=== PATIENT | male | born 1955 | race American Indian/Alaskan Native ===

== ENCOUNTER 2019-03-17 14:34 | Emergency (ER) | payer OTHER ==
--- NOTE | 2019-03-17 14:51 | Emergency Department Report ---
Blank Doc - Documentation Documentation: This is a 63-year-old male that presents with lower back pain and lower abdomi nal pain. Stated has dark color urine with foul odor. This initial assessment/diagnostic orders/clinical plan/treatment(s) is/are subject to change based on patient's health status, clinical progression and re- assessment by fellow clinical providers in the ED. Further treatment and workup at subsequent clinical providers discretion. Patient/guardians urged not to elope from the ED as their condition may be serious if not clinically assessed and managed. Initial orders include: 1- Patient sent to [facility] for further evaluation and treatment 2- labs 3- UA
[2019-03-17 16:08] LABS: Bilirubin,Urine NEG (Negative); Blood,Urine NEG (Negative); Color,Urine Yellow (Yellow); Mucus,Urine 1+ /HPF; Urobilinogen,Urine < 2.0 mg/dL (<2.0)
[2019-03-17 16:09] LABS: RBC,Urine < 1.0 /HPF (0.0-6.0)
[2019-03-17 17:05] LABS: Basophils % (Auto) 0.6 % (0.0-1.8); Eosinophils % (Auto) 1.1 % (0.0-4.3); Hematocrit 39.1 % (35.5-45.6); Hemoglobin 13.2 gm/dl (11.8-15.2); Lymphocytes # (Auto) 1.7 K/mm3 (1.2-5.4); Mean Corpuscular HGB Conc 34 % (32-34); Mean Corpuscular Volume 91 fl (84-94); Monocytes # (Auto) 0.5 K/mm3 (0.0-0.8); Monocytes % (Auto) 11.9 % (0.0-7.3); Platelet Count 160 K/mm3 (140-440); Red Blood Count 4.28 M/mm3 (3.65-5.03)
[2019-03-17 17:25] LABS: Alanine Aminotransferase 15 units/L (7-56); Albumin 4.4 g/dL (3.9-5); BUN/Creatinine Ratio 15; Blood Urea Nitrogen 15 mg/dL (9-20); Calcium 9.4 mg/dL (8.4-10.2); Hemolysis Index 4
[2019-03-17] MEDS ORDERED: TORADOL IM ONE (18:22)
--- NOTE | 2019-03-17 18:24 | Emergency Department Report ---
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 He is stating that his urine just doesn't feel right" right. He also complains of bilateral back pain. He denies injury fall or other trauma. He denies any blood in his urine. He denies discharge. He denies fever and chills. He states that he has had this before and they gave him Motrin and it did nothing for him. He is requesting pain medicines. ED Review of Systems ROS: Stated complaint: BACK PAIN/LOW ABD PAIN Other details as noted in HPI Comment: All other systems reviewed and negative ED Past Medical Hx - Past Medical History Previous Medical History?: No - Surgical History Past Surgical History?: No - Family History Family history: no significant - Social History Smoking Status: Never Smoker - Medications Home Medications: Home Medications Medication Instructions Recorded Confirmed Last Taken Type Acetaminophen/Codeine [Tylenol 1 tab PO Q6H PRN #10 tab 03/17/19 Unknown Rx /Codeine # 3 tab] Dysuria Exam - Exam General: Vital signs noted. No distress. Alert and acting appropriately. Exam: Yes Moist Mucous Membranes, No CVA Tenderness, No Abdominal Tenderness, No Rigidity or Guarding Labs: Lab Results 03/17/19 03/17/19 03/17/19 Range/Units 15:11 15:11 Unknown WBC 4.4 L (4.5-11.0) K/mm3 RBC 4.28 (3.65-5.03) M/mm3 Hgb 13.2 (11.8-15.2) gm/dl Hct 39.1 (35.5-45.6) % MCV 91 (84-94) fl MCH 31 (28-32) pg MCHC 34 (32-34) % RDW 15.0 (13.2-15.2) % Plt Count 160 (140-440) K/mm3 Lymph % (Auto) 38.0 H (13.4-35.0) % [place] % (Auto) 11.9 H (0.0-7.3) % Eos % (Auto) 1.1 (0.0-4.3) % Baso % (Auto) 0.6 (0.0-1.8) % Lymph # 1.7 (1.2-5.4) K/mm3 [place] # 0.5 (0.0-0.8) K/mm3 Eos # 0.0 (0.0-0.4) K/mm3 Baso # 0.0 (0.0-0.1) K/mm3 Seg Neutrophils % 48.4 (40.0-70.0) % Seg Neutrophils # 2.1 (1.8-7.7) K/mm3 Sodium 141 (137-145) mmol/L Potassium 3.8 (3.6-5.0) mmol/L Chloride 101.4 (98-107) mmol/L Carbon Dioxide 27 (22-30) mmol/L Anion Gap 16 mmol/L BUN 15 (9-20) mg/dL Creatinine 1.0 (0.8-1.5) mg/dL Estimated GFR > 60 ml/min BUN/Creatinine Ratio 15 % Glucose 99 (75-100) mg/dL Calcium 9.4 (8.4-10.2) mg/dL Total Bilirubin 1.00 (0.1-1.2) mg/dL AST 18 (5-40) units/L ALT 15 (7-56) units/L Alkaline Phosphatase 78 (35-129) units/L Total Protein 7.8 (6.3-8.2) g/dL Albumin 4.4 (3.9-5) g/dL Albumin/Globulin Ratio 1.3 % Urine Color Yellow (Yellow) Urine Turbidity Clear (Clear) Urine pH 5.0 (5.0-7.0) Ur Specific [place] 1.028 (1.003-1.030) Urine Protein 30 mg/dl (Negative) mg/dL Urine Glucose (UA) Neg (Negative) mg/dL Urine Ketones Neg (Negative) mg/dL Urine Blood Neg (Negative) Urine Nitrite Neg (Negative) Urine Bilirubin Neg (Negative) Urine Urobilinogen < 2.0 (<2.0) mg/dL Ur Leukocyte Esterase Neg (Negative) Urine WBC (Auto) 1.0 (0.0-6.0) /HPF Urine RBC (Auto) < 1.0 (0.0-6.0) /HPF Urine Mucus 1+ /HPF ED Course Vital Signs 03/17/19 14:50 Temperature 98.6 F Pulse Rate 89 Respiratory 19 Rate Blood Pressure 121/72 [Left] O2 Sat by Pulse 97 Oximetry ED Medical Decision Making - Lab Data Result diagrams: 03/17/19 15:11 03/17/19 15:11 - Medical Decision Making Laboratory Results - last 24 hr 03/17/19 03/17/19 03/17/19 15:11 15:11 Unknown WBC 4.4 L RBC 4.28 Hgb 13.2 Hct 39.1 MCV 91 MCH 31 MCHC 34 RDW 15.0 Plt Count 160 Lymph % (Auto) 38.0 H [place] % (Auto) 11.9 H Eos % (Auto) 1.1 Baso % (Auto) 0.6 Lymph # 1.7 [place] # 0.5 Eos # 0.0 Baso # 0.0 Seg Neutrophils % 48.4 Seg Neutrophils # 2.1 Sodium 141 Potassium 3.8 Chloride 101.4 Carbon Dioxide 27 Anion Gap 16 BUN 15 Creatinine 1.0 Estimated GFR > 60 BUN/Creatinine Ratio 15 Glucose 99 Calcium 9.4 Total Bilirubin 1.00 AST 18 ALT 15 Alkaline Phosphatase 78 Total Protein 7.8 Albumin 4.4 Albumin/Globulin Ratio 1.3 Urine Color Yellow Urine Turbidity Clear Urine pH 5.0 Ur Specific [place] 1.028 Urine Protein 30 mg/dl Urine Glucose (UA) Neg Urine Ketones Neg Urine Blood Neg Urine Nitrite Neg Urine Bilirubin Neg Urine Urobilinogen < 2.0 Ur Leukocyte Esterase Neg Urine WBC (Auto) 1.0 Urine RBC (Auto) < 1.0 Urine Mucus 1+ Vital Signs 03/17/19 14:50 Temperature 98.6 F Pulse Rate 89 Respiratory 19 Rate Blood Pressure 121/72 [Left] O2 Sat by Pulse 97 Oximetry I've discussed at length with pt his urine results. He is going back to [place] and will see his PCP. VSS. NAD. pain relieved with toradol. Dc home with dc plan of care. Critical care attestation.: If time is entered above; I have spent that time in minutes in the direct care of this critically ill patient, excluding procedure time. ED Disposition Clinical Impression: Proteinuria Disposition: DC-01 TO HOME OR SELFCARE Is pt being admited?: No Does the pt Need Aspirin: No Condition: Stable Prescriptions: Acetaminophen/Codeine [Tylenol /Codeine # 3 tab] 1 tab PO Q6H PRN #10 tab PRN Reason: Pain , Severe (7-10) Referrals: ANTONIA MONGE MD [Staff Physician] - 3-5 Days JAG JOHNSON MD [Staff Physician] - 3-5 Days Time of Disposition: 18:22
[2019-03-17] MEDS ORDERED: IBUPROFEN PO ONE (19:08)
[2019-03-17] MEDS ORDERED: IBUPROFEN ONE (19:08)
[2019-03-17 19:14] VITALS: BP 142/84
== END 2019-03-17 19:19 | disposition home or self-care (01) ==
LOC: ED 14:34
DX: R80.9 Proteinuria, unspecified (principal)
CPT/HCPCS: 36415; 80053; 81001; 85025; 99283